=== PATIENT | female | born 1960 | race Two or more races ===

== ENCOUNTER 2020-01-01 12:18 | Emergency (ER) | payer OTHER ==
[~2020-01-01] VITALS: Ht 165.1 cm; Wt 58.1 kg
== END 2020-01-01 15:39 | disposition home or self-care (01) ==
LOC: ER 12:18
DX: S20.212A Contusion of left front wall of thorax, initial encounter (principal); S20.211A Contusion of right front wall of thorax, initial encounter; V43.12XA Car passenger injured in collision with other type car in nontraffic accident, initial encounter; Y93.89 Activity, other specified; Y92.488 Other paved roadways as the place of occurrence of the external cause; Y99.8 Other external cause status

== ENCOUNTER 2020-01-07 11:30 | Emergency (ER) | payer OTHER ==
[~2020-01-07] VITALS: Ht 165.1 cm; Wt 58.1 kg
[2020-01-07] MEDS ORDERED: TRAMADOL HCL E100 M1 (11:46)
[2020-01-07] MEDS ORDERED: PREDNISONE20 M1 PO (15:05)
[2020-01-07] MEDS ORDERED: SKELAXIN800 MG PO (15:05)
== END 2020-01-07 15:19 ==
LOC: ER 11:30
DX: M62.830 Muscle spasm of back (principal); R51 Headache; S13.4XXS Sprain of ligaments of cervical spine, sequela; V49.88XA Car occupant (driver) (passenger) injured in other specified transport accidents, initial encounter; Y93.89 Activity, other specified; Y92.89 Other specified places as the place of occurrence of the external cause; Y99.8 Other external cause status